=== PATIENT | female | born 1975 | race Two or more races ===

== ENCOUNTER 2020-11-01 23:11 | Inpatient (IN) | payer OTHER ==
[~2020-11-01] VITALS: Ht 160 cm; Wt 68.0 kg
[2020-11-01] MEDS ORDERED: RIZATRIPTAN10 M1 (23:51)
[2020-11-01] MEDS ORDERED: AMITRIPTYLINE H25 MG (23:51)
--- NOTE | 2020-11-01 23:56 | NUR ---
PT ALERTA Y ACTIVA, DESORIENTADA X3 ESFERAS. EN COMPANIA DE HIJA. REFIERE DOLOR DE SEGUNDO, FIEBRES ALTAS DESDE EL LUNES Y DELIRIOS. LA PT RECIENTEMENTE GALEANA ESTADO VISITANDO UN NEUROLOGO (NO DE APC) LA ESTA MANEJANDO NANI MIGRANA. FAMILIAR NIEGA LE HALLAN REALIZADO MUESTRAS DE PUNCION LUMBAR. AL MOMENTO DE TRIAGE LA PT PRESENTA FIEBRE 100.4 Y SE REALIZA EKG, SE PRESENTA A DR DEWITT. SE UBICA PT BAJO AISLAMIENTO.
--- NOTE | 2020-11-02 00:58 | NUR ---
EVALUA PTE. SE EDUCA A PTE SOBRE [place] MEDICO. PTE REFIERE COMPRENDER. SE COLECTAN MUESTRAS DE LABORATORIO BAJO MEDIDAS ASEPTICAS Y SE ENVIAN AL LABORATORIO. SE ADMINISTRAN MEDICAMENTOS CHELSEY ORDEN MEDICA. SE NOTIFICA CT Y BATOOL X. PENDIENTE RE-EVALUACION MEDICA.
--- NOTE | 2020-11-02 05:15 | NUR ---
SE LLAMA A TERAPIA RESPIRATORIA Y NO CONTESTA.
--- NOTE | 2020-11-02 06:05 | NUR ---
SE NOTIFICAN SANDEEP HUSTON.
--- NOTE | 2020-11-02 06:12 | NUR ---
SE PROVEE BOLSA DE HIELO YA QUE PTE NO TOLERA NADA POR BOCA.
--- NOTE | 2020-11-02 06:52 | NUR ---
SE NOTIFICAN JUNIOR GIORDANO.
--- NOTE | 2020-11-02 07:00 | NUR ---
SE RECIBE PACIENTE FEMENINA ALERTA Y ORIENTADA CON BARANDAS ELEVADAS. AREA DE VENOPUNCION EN ANTEBRAZO DERECHO Y PATENTE, AREA HARPER DE EDEMA Y ENROJECIMINETO. PENDIENTE A ENTREGAR U/A Y RE-EVALUACION. SE LE MAY EN TODO MONENTO PRIVACIDAD Y SEGURIDAD.
== END 2020-11-07 14:06 | disposition home or self-care (01) | DRG 102 ==
LOC: ER 23:11 → SEC-K 11-02 09:39 → MEDI 11-03 14:12
PROVIDERS: Anesthesiology Pain Medicine; ADMIT Internal Medicine; ATTEND Internal Medicine
PROC: 009U3ZX Drainage of Spinal Canal, Percutaneous Approach, Diagnostic (ICD-10-PCS; principal; 2020-11-03 10:00)
PROC: 0DJ08ZZ Inspection of Upper Intestinal Tract, Via Natural or Artificial Opening Endoscopic (ICD-10-PCS; 2020-11-06)
DX: G43.911 Migraine, unspecified, intractable, with status migrainosus (principal); G03.0 Nonpyogenic meningitis; N39.0 Urinary tract infection, site not specified; K29.00 Acute gastritis without bleeding; K27.9 Peptic ulcer, site unspecified, unspecified as acute or chronic, without hemorrhage or perforation; E86.0 Dehydration; D64.9 Anemia, unspecified; R11.11 Vomiting without nausea; D72.829 Elevated white blood cell count, unspecified
CPT/HCPCS: 70544

== ENCOUNTER 2021-02-13 20:52 | Emergency (ER) | payer OTHER ==
[~2021-02-13] VITALS: Ht 157.5 cm; Wt 63.5 kg
[~2021-02-13 20:52] MED LIST: AMITRIPTYLINE H25 MG; RIZATRIPTAN10 M1
== END 2021-02-14 23:46 | disposition home or self-care (01) ==
LOC: ER 20:52
DX: K29.00 Acute gastritis without bleeding (principal); R11.2 Nausea with vomiting, unspecified

== ENCOUNTER 2021-04-11 10:21 | Emergency (ER) | payer OTHER ==
[~2021-04-11] VITALS: Ht 157.5 cm; Wt 59.0 kg
[2021-04-11] MEDS ORDERED: LOSARTAN-HCTZ1 EAC1 (10:35)
[2021-04-11] MEDS ORDERED: MUCINEX DM ER1 EAC1 PO (20:05)
[2021-04-11] MEDS ORDERED: VITAMIN D3-ALO1 EACH PO (20:05)
[2021-04-11] MEDS ORDERED: MELATONIN10 M2 PO (20:05)
[2021-04-11] MEDS ORDERED: PROAIR RESPICL90 MCG IH (20:05)
[2021-04-11] MEDS ORDERED: AZITHROMYCIN500 MG PO (20:05)
[2021-04-11] MEDS ORDERED: VITAMIN C WIT1000 MG PO (20:05)
[2021-04-11] MEDS ORDERED: COLCHICINE0.6 MG PO (20:05)
[2021-04-11] MEDS ORDERED: DECADRON6 MG PO (20:05)
[2021-04-11] MEDS ORDERED: ACETAMINOPHEN650 M2 PO (20:05)
[2021-04-11] MEDS ORDERED: IVERMECTIN3 MG PO (20:05)
== END 2021-04-12 03:07 | disposition home or self-care (01) ==
LOC: ER 10:21
DX: U07.1 COVID-19 (principal); J12.89 Other viral pneumonia; R06.02 Shortness of breath; R11.2 Nausea with vomiting, unspecified; R05 Cough; M79.10 Myalgia, unspecified site; Z03.818 Encounter for observation for suspected exposure to other biological agents ruled out